=== PATIENT | female | born 1960 | race Caucasian/White ===

== ENCOUNTER 2025-09-11 10:44 | Emergency (ER) | payer OTHER, SELFPAY ==
[2025-09-11 10:53] VITALS: BP 136/94
[2025-09-11 11:45] VITALS: BMI 29.2
--- NOTE | 2025-09-11 11:49 | EDRN ---
Patient stated that she is homeless and has been feeling suicidal. Patient stated that she does not have a plan. Stated 'I come to the hospital before I get to that point.' Patient stated that she has been admitted to [facility] in the past and
would like to go back there. Patient stated that her medications were recently changed. Patient stated that her step daughter 6 months ago from an OD and her daughter is currently using drugs.
--- NOTE | 2025-09-11 12:15 | ED.GENMED ---
History of Present Illness
<Jacquelyn Cabrales MD, Resident - Last Filed: 09/11/25 15:50>
General
Chief Complaint: Crisis Evaluation
Source: patient
Exam Limitations: none
Time Seen by Provider: 09/11/25 11:44
History of Present Illness
History of Present Illness:
65 y/o female with pmhx depression and diabetes presents for suicidal ideation. She states she wants to 'throw herself in front of a semi.' Currently she denies any thoughts of harming herself or others and states she has no plan of harming herself.
She has been in and out of homelessness recently. Her daughter in law of a drug OD 3 years ago and she has been worrying about her daughter recently who is also using illicit drugs. She denies any fever, chills, N/V/D/C, URI symptoms,
numbness, tingling or focal weakness. She does have a resting tremor in her right arm that has been present for many years. She states it has been there since she stopped phenelzine.
Past History
<Jacquelyn Cabrales MD, Resident - Last Filed: 09/11/25 15:50>
Past History
ED Past Medical History: GERD, NIDDM and Psychiatric
ED Past Surgical History: Appendectomy, Cholecystectomy and Orthopedic
Social History
Tobacco: Non-smoker
Alcohol: Former
Drug: None
Living: homeless
Family History
Family History: Other (Mother - depression )
Review of Systems
<Jacquelyn Cabrales MD, Resident - Last Filed: 09/11/25 15:50>
Review of Systems
Allergies reviewed?: Yes
Constitutional: Reports no symptoms
EENT: Reports no symptoms
Respiratory: Reports no symptoms
Cardiac: Reports no symptoms
ABD/GI: Reports no symptoms
: Reports no symptoms
Skin: Reports no symptoms
Neurological: Reports no symptoms
Psychiatric: Reports depression
Phy Exam
<Jacquelyn Cabrales MD, Resident - Last Filed: 09/11/25 15:50>
Physical Exam
Physical Exam:
General: Appears in emotional distress, tearful
Neck: Supple
Cardiac: Regular S1, S2, no murmurs
Respiratory: Clear breath sounds bilaterally
Abdominal: non-tender, non-distended, normal BSx4,
Extremities: No edema
Neurologic: CN II-XII intact, muscle strength 5/5 bilateral upper and lower extremities. Chronic right arm tremor at rest noted.
Psych: Appears sad
Skin: No rash
Course
<Jacquelyn Cabrales MD, Resident - Last Filed: 09/11/25 15:50>
Orders/Labs/Results
Orders:
Orders
09/11/25 10:56
1:1 Observation - Suicide/ Violent Behavior As Directed
Crisis Consult Urgent
Reason for Consult: SI
09/11/25 13:04
Acetaminophen Urgent
Alcohol Urgent
Complete Blood Count/No Diff Urgent
Comprehensive Metabolic Panel Urgent
Salicylate Urgent
TSH Reflex To Free T4 Urgent
Urine Drug Abuse Screen Urgent
Date Specimen was Collected: 09/11/25
Time Specimen was Collected: 13:00
Abnormal Lab Results
09/11/25
13:04
MCH 31.1 H pg
(27.0-31.0)
MPV 10.6 H fL
(7.4-10.4)
Chloride 108 H mmol/L
(98-107)
Glucose 125 H mg/dl
(70-99)
Salicylates < 1.0 L mg/dl
(2.0-20.0)
Acetaminophen < 10 L ug/ml
(10-30)
U Marijuana (THC) Screen Positive H
(Negative)
09/11/25 13:04
09/11/25 13:04
Vital Signs
Initial and Last Documented VS:
Initial Vital Signs
Temp Pulse Resp BP Pulse Ox
98 F 97 16 136/94 97
09/11/25 10:53 09/11/25 10:53 09/11/25 10:53 09/11/25 10:53 09/11/25 10:53
Last Documented Vital Signs
Temp Pulse Resp BP Pulse Ox
98.6 F 86 18 120/78 98
09/11/25 15:24 09/11/25 15:24 09/11/25 15:24 09/11/25 15:24 09/11/25 15:24
<Romario Ramsay MD - Last Filed: 09/11/25 15:58>
Orders/Labs/Results
Orders:
Orders
09/11/25 10:56
1:1 Observation - Suicide/ Violent Behavior As Directed
Crisis Consult Urgent
Reason for Consult: SI
09/11/25 13:04
Acetaminophen Urgent
Alcohol Urgent
Complete Blood Count/No Diff Urgent
Comprehensive Metabolic Panel Urgent
Salicylate Urgent
TSH Reflex To Free T4 Urgent
Urine Drug Abuse Screen Urgent
Date Specimen was Collected: 09/11/25
Time Specimen was Collected: 13:00
Abnormal Lab Results
09/11/25
13:04
MCH 31.1 H pg
(27.0-31.0)
MPV 10.6 H fL
(7.4-10.4)
Chloride 108 H mmol/L
(98-107)
Glucose 125 H mg/dl
(70-99)
Salicylates < 1.0 L mg/dl
(2.0-20.0)
Acetaminophen < 10 L ug/ml
(10-30)
U Marijuana (THC) Screen Positive H
(Negative)
09/11/25 13:04
09/11/25 13:04
Vital Signs
Initial and Last Documented VS:
Initial Vital Signs
Temp Pulse Resp BP Pulse Ox
98 F 97 16 136/94 97
09/11/25 10:53 09/11/25 10:53 09/11/25 10:53 09/11/25 10:53 09/11/25 10:53
Last Documented Vital Signs
Temp Pulse Resp BP Pulse Ox
98.6 F 86 18 120/78 98
09/11/25 15:24 09/11/25 15:24 09/11/25 15:24 09/11/25 15:24 09/11/25 15:24
<Jacquelyn Cabrales MD, Resident - Last Filed: 09/11/25 15:50>
MDM/Problems Addressed
Differential Diagnosis Includes:
Suicidal ideation, depression, anxiety, malingering, hypothyroidism
MDM/Problems Addressed:
Crisis contacted as patient is reporting suicidal ideation. Currently has no plan. CBC, CMP, TSH, USD to eval for anything contributing to depression.
CBC, CMP and TSH unremarkable. UDS reveals <1.0 salicylates, <10 acetaminophen and marijuana, but otherwise unremarkable.
Chronic conditions affecting care: Psychiatric illness
<Jacquelyn Cabrales MD, Resident - Last Filed: 09/11/25 15:50>
*Pulse Oximetry
SaO2: 97
Oxygen Mode of Delivery: Room air
Patient hypoxic: no
*Critical Care Note
Total Time (30-74mins, 75-104mins- exclusive of procedures): Not Applicable
Data Reviewed
Review of Other/Old Records Reveals: Labs (prior UDS positive for marijuana in 2021)
Source: patient
ED Attending Note
<Jacquelyn Cabrales MD, Resident - Last Filed: 09/11/25 15:50>
-
Portions of this chart may have been created with voice recognition software.� Occasional wrong word or��sound alike� substitutions may have occurred due to the inherent limitations of voice recognition software.
<Romario Ramsay MD - Last Filed: 09/11/25 15:58>
ED Attending Note
Patient seen and examined by attending physician: Yes
ED Attending Note:
Pt with history of depression and diabetes, currently homeless, recently completed inpatient nj @ [facility], presents to ED due to increased depression along with suicidal thoughts. Pt has had thoughts about jumping in front of a car. Denies
homicidal ideation. Pt otherwise has no complaints. Denies recent illness.
General: well appearing female in no acute distress.
Heent: nc/at. eomi
Lungs: cta
Heart: rrr. no murmur
Abd: soft and nontender
Neuro: aao x 3. no focal neurological deficit.
Skin: no rash.
Psych: pleasant and cooperative
Pt medically cleared. Pt to be evaluated by [facility] for likely in-patient psychiatric evaluation/treatment
Discharge Plan
Departure
Prescriptions:
No Action
phenelzine [Nardil] 15 MG tablet
15 mg PO QID Qty: 60 0RF
pantoprazole 40 MG tablet,delayed release (DR/EC)
40 mg PO DAILY Qty: 30 0RF
Referrals:
UNKNOWN - PT DOES,NOT KNOW [Family Provider]
Interventions
Interventions:
*Risk Screen - Suicide Last Done: 09/11/25 10:55
*General Assessment Last Done: 09/11/25 11:45
*Neglect/Abuse Screening Last Done: 09/11/25 10:55
*ED- Fall Risk Assessment Last Done: 09/11/25 11:45
*ED COVID-19 Vaccine History Last Done: 09/11/25 11:45
*ED Influenza Vaccine History Last Done: 09/11/25 11:45
ED-Psychological Assessment Last Done: 09/11/25 11:45
Discharge Date and Time
Print Language: [id number]
[2025-09-11 13:19] LABS: Hematocrit 44.1 % (37.0-47.0); Hemoglobin 15.0 g/dL (12.0-16.0); Mean Corp Hgb Conc. 34.0 g/dL (33.0-37.0); Mean Corpuscular Volume 91.5 fL (81.0-99.0); Platelet Count 220 10^3/uL (130-400); Red Cell Dist. Width 14.0 % (11.5-14.5)
[2025-09-11 13:37] LABS: ALT (SGPT) 24 U/L (0-35); AST (SGOT) 27 U/L (14-36); Acetaminophen < 10 ug/ml (10-30); Albumin 4.7 g/dl (3.5-5.0); Alkaline Phosphatase 85 U/L (38-126); Blood Urea Nitrogen 12 mg/dl (7-17); Calcium 9.8 mg/dl (8.4-10.2); Carbon Dioxide 23 mmol/L (22-30); Chloride 108 mmol/L (98-107); Estimated Creatinine Clearance 71 ml/min; Glucose 125 mg/dl (70-99); Potassium 3.7 mmol/L (3.5-5.1); Salicylate < 1.0 mg/dl (2.0-20.0); Sodium 136 mmol/L (135-145); Total Protein 7.6 g/dl (6.3-8.2); eGFR > 60.00
[2025-09-11 15:24] VITALS: BP 120/78
== END 2025-09-11 22:03 ==
LOC: EMR 10:44
PROVIDERS: EMERGENCY PHYSICIAN Emergency Medicine
DX: R45.851 Suicidal ideations (principal); F32.A Depression, unspecified; E11.9 Type 2 diabetes mellitus without complications; K21.9 Gastro-esophageal reflux disease without esophagitis; Z59.00 Homelessness unspecified; Z63.79 Other stressful life events affecting family and household; Z63.4 Disappearance and death of family member; Z81.8 Family history of other mental and behavioral disorders
CPT/HCPCS: 99285; 80053; 80143; 80179; 80306; 82077; 84443; 85027